=== PATIENT | female | born 1960 | race Caucasian/White ===

== ENCOUNTER 2021-05-09 18:50 | Emergency (ER) | payer BC, SELFPAY ==
[2021-05-09] MEDS ORDERED: Ketorolac Tromethamine 60 MG/2 ML VIAL ONE (19:16)
== END 2021-05-09 20:02 | disposition home or self-care (01) ==
LOC: BURERS 18:50
DX: S42.032A Displaced fracture of lateral end of left clavicle, initial encounter for closed fracture (principal); I10 Essential (primary) hypertension; I25.10 Atherosclerotic heart disease of native coronary artery without angina pectoris; E78.5 Hyperlipidemia, unspecified; Z87.891 Personal history of nicotine dependence; W19.XXXA Unspecified fall, initial encounter
CPT/HCPCS: 96372; J1885